=== PATIENT | male | born 1975 | race Caucasian/White ===

== ENCOUNTER 2021-05-08 09:00 | Emergency (ER) | payer MEDICAID ==
[~2021-05-08] VITALS: Ht 172.7 cm; Wt 80.0 kg
[2021-05-08] MEDS ORDERED: ONDANSETRON 4MG ODT PO ONE (10:45)
[2021-05-08] MEDS ORDERED: MECLIZINE 25MG TABLET PO ONE (10:45)
[2021-05-08 12:21] LABS: BASOPHILS % 0.3 % (0.0-2.0); EOSINOPHILS % 2.3 % (0.0-5.0); HEMATOCRIT. 43.6 % (42.0-52.0); HEMOGLOBIN. 14.9 g/dL (14.0-18.0); MEAN CORPUSCULAR VOLUME 84.7 fL (80.0-94.0); MONOCYTES % 4.4 % (2.0-8.0); PLATELET 267 x1000/uL (130-400); RED BLOOD CELL COUNT 5.15 mill/uL (4.7-6.1); RED CELL DISTRIBUTION WIDTH 14.9 % (11.6-14.6)
[2021-05-08 12:28] LABS: CHLORIDE 104 mEq/L (98-107)
[2021-05-08] MEDS ORDERED: MECLIZINE 25MG TABLET PO NR (16:00)
[2021-05-08] MEDS ORDERED: MECL-159 MT (17:16)
[2021-05-08 17:36] VITALS: BP 122/76
== END 2021-05-08 17:38 | disposition home or self-care (01) ==
LOC: ER 09:00
DX: H81.399 Other peripheral vertigo, unspecified ear (principal); Z90.49 Acquired absence of other specified parts of digestive tract
CPT/HCPCS: 36415; 80053; 85025; 93005; 99284; Q0162; J8597